=== PATIENT | female | born 1930 | race Caucasian/White ===

== ENCOUNTER 2016-12-09 12:27 | Inpatient (IN) | payer MEDICARE, OTHER ==
[2016-12-06 13:08] LABS: BLOOD UREA NITROGEN 20 mg/dL (7-18)
[2016-12-06 13:12] LABS: ASPARTATE AMINO TRANSFERASE 16 U/L (15-37)
[~2016-12-09] VITALS: Ht 149.9 cm; Wt 64.3 kg
[~2016-12-09 12:27] MED LIST: BACITRACIN 50,000 UNIT ONE; BENICAR PO; BUPIVACAINE/PF 0.25% ONE; ISOSULFAN BLUE 10 MG/ML, 5ML IV ONE; MULT-516 PO; OLME1TAB PO; VIT1CAPS11 PO
[2016-12-09 14:03] VITALS: BP 126/70
[2016-12-09] MEDS ORDERED: LACTATED RINGERS 1,000 ML IV SCH (14:07)
[2016-12-09] MEDS ORDERED: FENTANYL PF 250 MCG/5ML ONE (14:09)
[2016-12-09] MEDS ORDERED: BUPIVACAINE/PF-EPI 0.5% 1:200K ONE (14:11)
[2016-12-09] MEDS ORDERED: ROPIvacaine/PF 0.2%, 20 ML ONE (14:17)
[2016-12-09] MEDS ORDERED: ACETAMINOPHEN 325 MG TABLET PO PRN (15:00)
[2016-12-09] MEDS ORDERED: EPHEDRINE 50 MG/ML, 1ML IVPush PRN (15:00)
[2016-12-09] MEDS ORDERED: OXYcodone 5 MG/5 ML ORAL.SOL UDC PO PRN (15:00)
[2016-12-09] MEDS ORDERED: FENTANYL PF 100 MCG/2ML IV PRN (15:00)
[2016-12-09] MEDS ORDERED: ONDANSETRON 2MG/ML, 2ML IVPush PRN ×2 (15:00→19:30)
[2016-12-09] MEDS ORDERED: METOPROLOL 1 MG/ML, 5ML IV PRN (15:00)
[2016-12-09] MEDS ORDERED: HYDROmorphone 1 MG/ML, 1ML IV PRN (15:00)
[2016-12-09] MEDS ORDERED: ALBUTEROL SULFATE 2.5 MG/3 ML NPPB PRN (15:00)
[2016-12-09] MEDS ORDERED: hydrALAzine 20 MG/ML, 1ML IV PRN (15:00)
[2016-12-09] MEDS ORDERED: LABETALOL 5MG/ML, 20ML IV PRN (15:00)
[2016-12-09] MEDS ORDERED: ONDANSETRON 2MG/ML, 2ML ONE (15:30)
[2016-12-09] MEDS ORDERED: PROPOFOL 10 MG/ML, 50ML ONE (15:30)
[2016-12-09] MEDS ORDERED: GLYCOPYRROLATE 0.2MG/1ML ONE (15:30)
[2016-12-09] MEDS ORDERED: PROPOFOL 10 MG/ML, 20ML ONE (15:30)
[2016-12-09] MEDS ORDERED: DEXAMETHASONE 4 MG/ML, 1ML ONE (15:30)
[2016-12-09] MEDS ORDERED: CEFAZOLIN 1,000 MG ONE (15:30)
[2016-12-09] MEDS ORDERED: EPHEDRINE 50 MG/ML, 1ML ONE ×2 (15:30→18:14)
[2016-12-09] MEDS ORDERED: ROCURONIUM 10 MG/ML ONE (15:30)
[2016-12-09] MEDS ORDERED: NEOSTIGMINE 1 MG/ML, 10ML ONE (15:30)
[2016-12-09] MEDS ORDERED: ACETAMINOPHEN 650 MG/20.3 ML UDC ONE (18:02)
[2016-12-09] MEDS ORDERED: OXYcodone 5 MG/5 ML ORAL.SOL UDC ONE (18:03)
[2016-12-09] MEDS ORDERED: morphine SULFATE 10 MG/ML, 1ML IVPush PRN (19:30)
[2016-12-09 19:36] VITALS: BP 100/64
[2016-12-09 20:48] VITALS: BP 100/64
[2016-12-09] MEDS: OXYcodone/APAP 5/325MG TABLET PO PRN (22:38)
[2016-12-09] MEDS: D5%-LACTATED RINGERS 1,000 ML IV SCH (23:08)
[2016-12-09] MEDS: CEFAZOLIN PMX 1GM/50ML 50 ML IV SCH (23:08)
[2016-12-09 23:17] VITALS: BP 95/54
[2016-12-10 02:59] VITALS: BP 114/68
[2016-12-10] MEDS: OXYcodone/APAP 5/325MG TABLET PO PRN ×2 (03:31→09:18)
[2016-12-10 03:45] VITALS: BP 107/68
[2016-12-10 07:02] VITALS: BP 91/55
[2016-12-10] MEDS: CEFAZOLIN PMX 1GM/50ML 50 ML IV SCH (07:56)
[2016-12-10] MEDS ORDERED: LOSARTAN 50MG TABLET PO SCH (09:00)
[2016-12-10] MEDS ORDERED: MULTIVITS,STRESS FORMULA 1 TABLET PO SCH (09:00)
[2016-12-10] MEDS ORDERED: HYDROCHLOROTHIAZIDE 12.5 MG CAPSULE PO SCH (09:00)
[2016-12-10] MEDS ORDERED: MULTIVITAMIN 1 TABLET PO SCH (09:00)
[2016-12-10] MEDS ORDERED: CEPH-368 PO (10:45)
[2016-12-10] MEDS ORDERED: OXYC-302 PO (10:46)
[2016-12-10 12:41] VITALS: BP 92/59
[2016-12-10] MEDS: D5%-LACTATED RINGERS 1,000 ML IV SCH (12:50)
== END 2016-12-10 13:10 | disposition home or self-care (01) | DRG 581 ==
LOC: OUT 12:27 → 4NOR 18:57 → OUT 23:58 → 4NOR 23:59
PROVIDERS: ADMIT Surgery; ATTEND Surgery
PROC: 0HTV0ZZ Resection of Bilateral Breast, Open Approach (ICD-10-PCS; principal; 2016-12-09 15:00)
PROC: 07B60ZZ Excision of Left Axillary Lymphatic, Open Approach (ICD-10-PCS; 2016-12-09 15:00)
PROC: 0HHV0NZ Insertion of Tissue Expander into Bilateral Breast, Open Approach (ICD-10-PCS; 2016-12-10)
DX: C50.912 Malignant neoplasm of unspecified site of left female breast (principal); I10 Essential (primary) hypertension
CPT/HCPCS: 36415; 38792; 80053; 88307; 88309; 88333; 93005; C1729; J0690; J1100; J2405; J2704; J2710; J2795; J3010; J3490; A9541; C1762; J7120; J7121

== ENCOUNTER 2017-04-27 13:43 | Day surgery (SDC) | payer MEDICARE, OTHER ==
[~2017-04-27] VITALS: Ht 147.3 cm; Wt 60.1 kg
[~2017-04-27 13:43] MED LIST changes: +ANTIBIOTIC PO; -BACITRACIN 50,000 UNIT ONE; -BUPIVACAINE/PF 0.25% ONE; +CEPH-368 PO; -ISOSULFAN BLUE 10 MG/ML, 5ML IV ONE; +METO25TA35 PO; -OLME1TAB PO; +OLME1TAB22 PO; +OXYC-302 PO; +RIVA20TA PO
[2017-04-27] MEDS ORDERED: FENTANYL PF 250 MCG/5ML ONE (14:29)
[2017-04-27 14:32] VITALS: BP 119/72
[2017-04-27] MEDS ORDERED: LACTATED RINGERS 1,000 ML IV SCH (14:35)
[2017-04-27] MEDS ORDERED: OLMESARTAN PO (14:47)
[2017-04-27] MEDS ORDERED: ANASTROZOLE PO (14:47)
[2017-04-27] MEDS ORDERED: METOPROL PO (14:47)
[2017-04-27] MEDS ORDERED: EPINEPHRINE 1 MG/ML, 1ML ONE (15:08)
[2017-04-27] MEDS ORDERED: BUPIVACAINE/PF 0.25% ONE (15:08)
[2017-04-27] MEDS ORDERED: ONDANSETRON 2MG/ML, 2ML ONE ×3 (15:31)
[2017-04-27] MEDS ORDERED: PROPOFOL 10 MG/ML, 20ML ONE (15:31)
[2017-04-27] MEDS ORDERED: PHENYLEPHRINE 10 MG/ML ONE (15:31)
[2017-04-27] MEDS ORDERED: CEFAZOLIN 1,000 MG ONE (15:31)
[2017-04-27] MEDS ORDERED: FENTANYL PF 100 MCG/2ML ONE (15:31)
[2017-04-27] MEDS ORDERED: BUPIVACAINE/PF 0.5% INFIL ONE (16:14)
[2017-04-27] MEDS ORDERED: FENTANYL PF 100 MCG/2ML IV PRN (17:00)
[2017-04-27] MEDS ORDERED: ONDANSETRON 2MG/ML, 2ML IVPush PRN (17:00)
[2017-04-27] MEDS ORDERED: HYDROmorphone 1 MG/ML, 1ML IV PRN (17:00)
[2017-04-27] MEDS ORDERED: HYDROcodone/APAP 7.5-325MG/15ML UDC PO PRN (17:00)
[2017-04-27] MEDS ORDERED: OXYcodone 5 MG/5 ML ORAL.SOL UDC PO PRN (17:00)
[2017-04-27] MEDS ORDERED: ACETAMINOPHEN 325 MG TABLET PO PRN (17:00)
[2017-04-27] MEDS ORDERED: ACETAMINOPHEN 650 MG/20.3 ML UDC ONE (17:04)
[2017-04-27] MEDS ORDERED: OXYcodone 5 MG/5 ML ORAL.SOL UDC ONE (17:04)
== END 2017-04-27 18:30 ==
LOC: OR 13:43
PROVIDERS: ATTEND Plastic Surgery
DX: C50.912 Malignant neoplasm of unspecified site of left female breast (principal); Z90.13 Acquired absence of bilateral breasts and nipples; I10 Essential (primary) hypertension; F03.90 Unspecified dementia, unspecified severity, without behavioral disturbance, psychotic disturbance, mood disturbance, and anxiety
CPT/HCPCS: 19342; C1789; J0171; J0690; J2370; J2405; J2704; J3010; J3490

== ENCOUNTER 2018-09-30 09:05 | Day surgery (SDC) | payer MEDICARE ==
[~2018-09-30] VITALS: Ht 149.9 cm; Wt 135.0 kg
[~2018-09-30 09:05] MED LIST changes: +ANASTROZOLE PO; +METOPROL PO; +OLMESARTAN PO
[2018-09-30 09:51] VITALS: BP 122/69
[2018-09-30] MEDS ORDERED: BUPIVACAINE/PF 0.25% ONE (10:22)
[2018-09-30] MEDS ORDERED: PROPOFOL 10 MG/ML, 20ML ONE (11:07)
[2018-09-30] MEDS ORDERED: FENTANYL PF 100 MCG/2ML ONE (11:07)
[2018-09-30] MEDS ORDERED: ONDANSETRON 2MG/ML, 2ML ONE (11:08)
[2018-09-30] MEDS ORDERED: DEXAMETHASONE 4 MG/ML, 1ML ONE (11:08)
[2018-09-30] MEDS ORDERED: SUCCINYLCHOLINE 20 MG/ML, 10ML ONE (11:48)
[2018-09-30] MEDS ORDERED: CEFAZOLIN 1,000 MG ONE (11:48)
[2018-09-30] MEDS ORDERED: ROCURONIUM 10MG/ML,5ML ONE (11:48)
[2018-09-30] MEDS ORDERED: BUPIVACAINE/PF 0.25% INFIL ONE (11:58)
[2018-09-30 14:05] VITALS: BP 124/69
[2018-09-30] MEDS ORDERED: HYDR-3237 PO (14:12)
== END 2018-09-30 15:10 | disposition home or self-care (01) ==
LOC: OR 09:05 → 4NOR 09:40 → OR 15:10
PROVIDERS: ATTEND Surgery
DX: C50.912 Malignant neoplasm of unspecified site of left female breast (principal); C50.911 Malignant neoplasm of unspecified site of right female breast; I48.91 Unspecified atrial fibrillation; I10 Essential (primary) hypertension; E78.5 Hyperlipidemia, unspecified; F03.90 Unspecified dementia, unspecified severity, without behavioral disturbance, psychotic disturbance, mood disturbance, and anxiety; Z17.0 Estrogen receptor positive status [ER+]; Z79.811 Long term (current) use of aromatase inhibitors; Z79.899 Other long term (current) drug therapy; Z72.89 Other problems related to lifestyle; Z90.13 Acquired absence of bilateral breasts and nipples; Z98.890 Other specified postprocedural states; Z82.3 Family history of stroke; Z82.49 Family history of ischemic heart disease and other diseases of the circulatory system
CPT/HCPCS: 19120; 88305; 93005; J0330; J0690; J1100; J2405; J2704; J3010; J3490; G0378